=== PATIENT | female | born 1965 | race Caucasian/White ===

== ENCOUNTER 2018-04-30 08:11 | Outpatient (CLI) | payer OTHER ==
[~2018-04-30 08:11] MED LIST: DICY20TA; PROTONIX40 MG
== END 2018-04-30 14:34 | disposition home or self-care (01) ==
LOC: SONOGRAMA 08:11
DX: R10.84 Generalized abdominal pain (principal); R13.19 Other dysphagia

== ENCOUNTER → 2018-08-10 | Emergency (ER) | payer OTHER ==
[~2018-08-10] VITALS: Ht 160 cm; Wt 52.2 kg
[~2018-08-10] MED LIST changes: +LEVSINEX0.375 M1; +LIPITOR20 MG; +MEMANTINE HCL10 MG; +REMINYL4 MG; +TOPROL XL25 MG; +ZANTAC300 MG
== END | disposition home or self-care (01) ==
LOC: ER 16:40
DX: K29.70 Gastritis, unspecified, without bleeding (principal)

== ENCOUNTER 2018-11-25 13:49 | Emergency (ER) | payer OTHER ==
[~2018-11-25] VITALS: Ht 160 cm; Wt 51.3 kg
== END 2018-11-25 17:35 | disposition home or self-care (01) ==
LOC: ER 13:49
DX: R42 Dizziness and giddiness (principal); F06.4 Anxiety disorder due to known physiological condition

== ENCOUNTER 2018-12-02 12:06 | Emergency (ER) | payer OTHER ==
[~2018-12-02] VITALS: Ht 160 cm; Wt 49.9 kg
== END 2018-12-02 14:30 | disposition home or self-care (01) ==
LOC: ER 12:06
DX: R00.2 Palpitations (principal)

== ENCOUNTER 2021-05-05 11:39 | Outpatient (CLI) | payer OTHER | END 2021-05-05 11:49 | disposition home or self-care (01) | LOC: RAD 11:39 | PROVIDERS: ATTEND Physical Medicine & Rehabilitation | DX: M16.11 Unilateral primary osteoarthritis, right hip (principal); M16.12 Unilateral primary osteoarthritis, left hip; M25.511 Pain in right shoulder; M54.6 Pain in thoracic spine ==

== ENCOUNTER 2021-05-19 09:02 | Outpatient (CLI) | payer OTHER | END 2021-05-19 09:11 | disposition home or self-care (01) | LOC: SONOGRAMA 09:02 | PROVIDERS: ATTEND Psychiatry & Neurology Neurology | DX: R10.84 Generalized abdominal pain (principal); R93.5 Abnormal findings on diagnostic imaging of other abdominal regions, including retroperitoneum ==

== ENCOUNTER 2022-05-10 12:35 | Outpatient (CLI) | payer OTHER | END 2022-05-10 12:44 | disposition home or self-care (01) | LOC: RAD 12:35 | PROVIDERS: ATTEND Orthopaedic Surgery | DX: M25.522 Pain in left elbow (principal) ==

== ENCOUNTER 2022-05-17 13:01 | Outpatient (CLI) | payer OTHER | END 2022-05-17 13:09 | disposition home or self-care (01) | LOC: NUCLEAR 13:01 | PROVIDERS: ATTEND Internal Medicine | DX: M81.0 Age-related osteoporosis without current pathological fracture (principal) ==

== ENCOUNTER 2022-05-31 14:15 | Outpatient (CLI) | payer OTHER | END 2022-05-31 14:27 | disposition home or self-care (01) | LOC: SONOGRAMA 14:15 | PROVIDERS: ATTEND Internal Medicine Endocrinology, Diabetes & Metabolism | DX: E04.1 Nontoxic single thyroid nodule (principal) ==

== ENCOUNTER 2022-08-25 07:53 | Outpatient (CLI) | payer OTHER | END 2022-08-25 08:08 | disposition home or self-care (01) | LOC: MAMO-SONO 07:53 | PROVIDERS: ATTEND Psychiatry & Neurology Neurology | DX: R41.3 Other amnesia (principal); I10 Essential (primary) hypertension; E78.2 Mixed hyperlipidemia; N60.11 Diffuse cystic mastopathy of right breast; N60.12 Diffuse cystic mastopathy of left breast | CPT/HCPCS: 70551 ==

== ENCOUNTER 2024-09-21 19:29 | Emergency (ER) | payer OTHER ==
[~2024-09-21] VITALS: Ht 160 cm; Wt 51.3 kg
[2024-09-21] MEDS ORDERED: KETOROLAC TROMETHAMINE 60 MG VIAL IM STA (20:30)
[2024-09-21] MEDS ORDERED: KETOROLAC TROMETHAMINE 60 MG VIAL IM ONE (20:42)
[2024-09-21] MEDS ORDERED: HYOSCYAMINE SULFATE 0.125 MG TAB.SUBL ONE (20:42)
[2024-09-21] MEDS ORDERED: HYOSCYAMINE SULFATE 0.125 MG TAB.SUBL SL ONE (20:45)
[2024-09-21 21:04] LABS: HEMATOCRIT 38.9 % (36.0-45.00); HEMOGLOBIN 13.2 g/dL (12.0-15.00); MEAN CELL VOLUME 95.5 fL (80.00-100.00); MEAN CORPUSCULAR HEMOGLOBIN 32.5 pg (27.00-32.0); PLATELET COUNT 315 K/uL (150-450); RED BLOOD COUNT 4.08 M/uL (4.00-6.00); RED CELL DISTRIBUTION WIDTH 13.1 % (11.5-14.5)
[2024-09-21 21:24] LABS: CALCIUM 9.2 mg/dL (8.5-10.1); CREATININE SERUM 0.82 mg/dL (0.55-1.02); GFR 71.35; POTASSIUM 5.57 mEq/L (3.5-5.1)
[2024-09-21 21:33] LABS: PH,URINE 6.5 (5.0-8.0); URINE APPEARANCE Clear; URINE BILIRRUBIN Negative (NEGATIVE); URINE BLOOD Negative; URINE COLOR Yellow; URINE GLUCOSE Negative (NEGATIVE); URINE KETONE Negative (NEGATIVE); URINE LEUKOCYTE Negative; URINE NITRATE Negative; URINE PROTEIN Negative (NEGATIVE)
[2024-09-21 21:39] LABS: URINE BACTERIA 216.4 uL (0.0-1933); URINE EPITHELIAL CELLS 25.4 uL (0.0-38.8); URINE RBC 3.9 uL (0.0-20.8); URINE WBC 4.7 uL (0.0-23.2)
[2024-09-22] MEDS ORDERED: 0.9 % SODIUM CHLORIDE 1,000 ML IV ONE (03:30)
[2024-09-22] MEDS ORDERED: PIPERACILLIN/TAZOBACTAM SODIUM 3.375 GM VIAL IV STA (03:37)
[2024-09-22] MEDS ORDERED: PIPERACILLIN/TAZOBACTAM SODIUM 3.375 GM VIAL IV ONE (03:39)
[2024-09-22 05:04] LABS: HEMATOCRIT 37.5 % (36.0-45.00); HEMOGLOBIN 12.8 g/dL (12.0-15.00); MEAN CELL VOLUME 95.3 fL (80.00-100.00); MEAN CORPUSCULAR HEMOGLOBIN 32.6 pg (27.00-32.0); MEAN CORPUSCULAR HGB CONC 34.2 g/dl (32.0-36.0); PLATELET COUNT 241 K/uL (150-450); RED BLOOD COUNT 3.94 M/uL (4.00-6.00); RED CELL DISTRIBUTION WIDTH 12.8 % (11.5-14.5)
[2024-09-22] MEDS ORDERED: CEFTRIAXONE SODIUM 1,000 MG VIAL IV STA (06:26)
== END 2024-09-22 13:23 | disposition home or self-care (01) ==
LOC: ER 19:31
PROVIDERS: General Practice
DX: R10.31 Right lower quadrant pain (principal); Z91.012 Allergy to eggs